=== PATIENT | female | born 1975 | race Caucasian/White ===

== ENCOUNTER 2017-05-28 11:29 | Outpatient (CLI) ==
[2015-07-23 00:01] VITALS: BMI 29.0
--- NOTE | 2017-05-28 12:21 | DI ---
EXAM: Chest two view, frontal and lateral views. HISTORY: Acute pharyngitis. COMPARISON: 10/18/2015. FINDINGS: The heart size is normal. There is no pulmonary vascular congestion. The lungs are clear . No pleural effusion or pneumothorax is seen. No acute osseous abnormality identified. Since the prior study, there has been no significant interval change. IMPRESSION: No acute cardiopulmonary process.
== END 2017-05-28 11:30 | disposition home or self-care (01) ==
LOC: RAD 11:29
PROVIDERS: ATTEND Emergency Medicine
DX: J02.9 Acute pharyngitis, unspecified (principal)

== ENCOUNTER 2017-05-28 12:57 | Outpatient (CLI) ==
[2015-07-23 00:01] VITALS: BMI 29.0
[2017-05-28 13:01] LABS: FLU INTERNAL QC INTERNAL QC VALID; RAPID FLU A NEGATIVE (NEGATIVE); RAPID FLU B NEGATIVE (NEGATIVE)
== END 2017-05-28 12:58 | disposition home or self-care (01) ==
LOC: LAB 12:57
PROVIDERS: ATTEND Emergency Medicine
DX: J02.9 Acute pharyngitis, unspecified (principal)
CPT/HCPCS: 87651; 87804; 87880